=== PATIENT | male | born 1950 | race Caucasian/White ===

== ENCOUNTER 2016-07-12 15:52 | Emergency (ER) | payer SELFPAY ==
[2016-07-12 16:15] VITALS: BP 144/88
--- NOTE | 2016-07-12 16:36 | ER Document Report ---
HPI - HPI Patient complains to provider of: left ear irritation Onset: Other - 2 weeks Onset/Duration: Persistent Quality of pain: Achy Severity: Severe Pain Level: 5 Context: Patient presents emergency department with complaints of left ear irritation. Patient reports approximately 2 weeks ago he felt something buzzing around his ear and thinks thinks a bug went in his left ear. He also reports he noted blood coming down out of that ear. He reports his right ear is slightly hurting also. Denies fever vomiting diarrhea. Denies trauma to the ear. Reports he can feel something moving in his ear. Associated Symptoms: None Exacerbated by: Denies Relieved by: Denies Similar symptoms previously: No Recently seen / treated by doctor: No - DERM Skin Color: Normal Past Medical History - General Information source: Patient - Social History Smoking Status: Former Smoker - quit in 1978 Cigarette use (# per day): No Smoking Education Provided: No Frequency of alcohol use: None Drug Abuse: None Family History: Reviewed & Not Pertinent Patient has suicidal ideation: No Patient has homicidal ideation: No - Past Medical History Cardiac Medical History: Reports: Hx Hypertension - NO MEDS Denies: Hx Heart Attack Pulmonary Medical History: Reports: Hx Asthma - last attack unknown, YEARS AGO Neurological Medical History: Denies: Hx Cerebrovascular Accident Renal/ Medical History: Denies: Hx Peritoneal Dialysis GI Medical History: Denies: Hx Hepatitis, Hx Hiatal Hernia, Hx Ulcer Infectious Medical History: Denies: Hx Hepatitis Surgical Hx: Negative Past Surgical History: Denies: Hx Open Heart Surgery, Hx Pacemaker - Immunizations Hx Diphtheria, Pertussis, Tetanus Vaccination: Yes Vertical Provider Document - CONSTITUTIONAL Agree With Documented VS: Yes Exam Limitations: No Limitations General Appearance: WD/WN - INFECTION CONTROL TRAVEL OUTSIDE OF THE [place] IN LAST 30 DAYS: No - HEENT HEENT: Atraumatic, Normocephalic. negative: Tympanic Membrane Red - insect noted not moving in left ear canal - NECK Neck: Normal Inspection, Supple. negative: Lymphadenopathy-Left, Lymphadenopathy-Right - RESPIRATORY Respiratory: Breath Sounds Normal, No Respiratory Distress O2 Sat by Pulse Oximetry: 97 - CARDIOVASCULAR Cardiovascular: Regular Rate - MUSCULOSKELETAL/EXTREMETIES Musculoskeletal/Extremeties: MAEW, FROM - NEURO Level of Consciousness: Awake, Alert, Appropriate Motor/Sensory: No Motor Deficit - DERM Integumentary: Warm, Dry Course - Re-evaluation Re-evalutation: 07/12/16 16:49 Left ear irrigated no insect noted patient instructed to follow up with his primary care next week for reevaluation of his blood pressure and recheck of the ear. Patient verbalized understanding to all instructions. Patient did become dizzy during procedure. Left supine resting until he was no longer dizzy. - Vital Signs Vital signs: Temp Pulse Resp BP Pulse Ox 98.3 F 65 16 144/88 H 97 07/12/16 16:12 07/12/16 16:12 07/12/16 16:12 07/12/16 16:12 07/12/16 16:12 Discharge - Discharge Clinical Impression: Irritation of left ear, Elevated blood pressure reading Condition: Stable Disposition: HOME, SELF-CARE Additional Instructions: *You have been evaluted and treated for ear irritation *Follow-up with a primary care provider for recheck of your ear in one week and full physical *Return to ED for worsening condition, changes, needs Monitor your blood pressure. Your blood pressure was elevated today. This may be because you were anxious, in pain or because you need medication. It is important to follow up with your primary care provider for full evaluation. Forms: Elevated Blood Pressure
== END 2016-07-12 16:58 | disposition home or self-care (01) ==
LOC: ER 15:52
DX: T16.2XXA Foreign body in left ear, initial encounter (principal); X58.XXXA Exposure to other specified factors, initial encounter; I10 Essential (primary) hypertension; Z87.891 Personal history of nicotine dependence
CPT/HCPCS: 99282

== ENCOUNTER 2017-07-02 19:45 | Emergency (ER) | payer SELFPAY ==
[2017-07-02] MEDS ORDERED: SULFAMETHOXAZOLE/TRIMETHOPRIM 800-160 MG TABLET PO ONE (21:00)
--- NOTE | 2017-07-02 21:01 | ER Document Report ---
HPI - HPI Patient complains to provider of: Abscess Onset: Other - 3 weeks Onset/Duration: Worse Quality of pain: Achy Pain Level: 3 Context: Patient complains of a tender lump to the upper back area that he has had for several years but that started to gradually become more painful and swollen over the past 3 weeks. Patient denies any fever. Patient denies any history of MRSA. Associated Symptoms: denies: Fever Exacerbated by: Denies Relieved by: Denies Similar symptoms previously: No Recently seen / treated by doctor: No - ROS ROS below otherwise negative: Yes Systems Reviewed and Negative: Yes All other systems reviewed and negative - CONSTITUTIONAL Constitutional: DENIES: Fever - MUSCULOSKELETAL Musculoskeletal: REPORTS: Back Pain - DERM Notes: Tender lump upper back area Past Medical History - General Information source: Patient - Social History Smoking Status: Never Smoker Frequency of alcohol use: None Drug Abuse: None Occupation: None Lives with: Spouse/Significant other Family History: Reviewed & Not Pertinent Patient has suicidal ideation: No Patient has homicidal ideation: No - Past Medical History Cardiac Medical History: Reports: Hx Hypertension - NO MEDS Denies: Hx Heart Attack Pulmonary Medical History: Reports: Hx Asthma - last attack unknown, YEARS AGO Neurological Medical History: Denies: Hx Cerebrovascular Accident Renal/ Medical History: Denies: Hx Peritoneal Dialysis GI Medical History: Denies: Hx Hepatitis, Hx Hiatal Hernia, Hx Ulcer Infectious Medical History: Denies: Hx Hepatitis Surgical Hx: Negative Past Surgical History: Denies: Hx Open Heart Surgery, Hx Pacemaker - Immunizations Hx Diphtheria, Pertussis, Tetanus Vaccination: Yes Vertical Provider Document - CONSTITUTIONAL Agree With Documented VS: Yes Exam Limitations: No Limitations General Appearance: WD/WN, No Apparent Distress - INFECTION CONTROL TRAVEL OUTSIDE OF THE [place] IN LAST 30 DAYS: No - HEENT HEENT: Atraumatic, Normocephalic - NECK Neck: Normal Inspection - RESPIRATORY Respiratory: Breath Sounds Normal, No Respiratory Distress - CARDIOVASCULAR Cardiovascular: Regular Rate, Regular Rhythm - MUSCULOSKELETAL/EXTREMETIES Musculoskeletal/Extremeties: MAEW - NEURO Level of Consciousness: Awake, Alert, Appropriate Motor/Sensory: No Motor Deficit - DERM Integumentary: Warm, Dry, Abscess - Patient with what appears to be an infected cyst concerning for possible abscess upper back area, central area is fluctuant with surrounding erythema Course - Vital Signs Vital signs: Temp Pulse Resp BP Pulse Ox 97.6 F 98 18 151/86 H 98 07/02/17 19:57 07/02/17 19:57 07/02/17 19:57 07/02/17 19:57 07/02/17 19:57 Procedures - Incision and Drainage Back Type: Simple Anesthetic type: 1% Lidocaine Blade size: 11 I&D procedure: Betadine prep applied Incision Method: Incision made by scalpel Amount/type of drainage: Large amount of purulent drainage Adult Front & Back picture: 1 - Large abscess, diameter 5 x 6 cm Discharge - Discharge Clinical Impression: Abscess, Encounter for incision and drainage procedure Condition: Stable Disposition: HOME, SELF-CARE Instructions: Abscess ([facility]), Oral Narcotic Medication ([facility]), Post Incision and Drainage, Trimethoprim-Sulfa ([facility]) Additional Instructions: Return immediately for any new or worsening symptoms Followup with your primary care provider, call tomorrow to make a followup appointment Prescriptions: Oxycodone HCl/Acetaminophen [Percocet 5-325 mg Tablet] 1 tab PO ASDIR PRN #12 tablet PRN Reason: Sulfamethoxazole/Trimethoprim [Bactrim Ds Tablet] 1 each PO BID #20 tablet Referrals: [facility] [Provider Group] - Follow up as needed [facility] [Provider Group] - Follow up as needed
[2017-07-02 22:25] VITALS: BP 152/73
== END 2017-07-02 22:24 | disposition home or self-care (01) ==
LOC: ER 19:45
PROC: 0H96XZZ Drainage of Back Skin, External Approach (ICD-10-PCS; principal; 2017-07-02)
DX: L02.212 Cutaneous abscess of back [any part, except buttock and flank] (principal); I10 Essential (primary) hypertension; Z79.899 Other long term (current) drug therapy; J45.909 Unspecified asthma, uncomplicated
CPT/HCPCS: 99283

== ENCOUNTER 2018-09-08 03:20 | Emergency (ER) | payer MEDICARE ==
[2018-09-08] MEDS ORDERED: ACETAMINOPHEN 325 MG TABLET PO ONE (04:44)
--- NOTE | 2018-09-08 04:50 | ER Document Report ---
ED Headache - General Chief Complaint: Headache Stated Complaint: HEADACHE Time Seen by Provider: 09/08/18 04:36 Primary Care Provider: DAVID HINDS MD [ACTIVE STAFF] - Follow up in 3-5 days Notes: Patient is a 67-year-old male that comes to the emergency department for chief complaint of a headache. He states he has a throbbing pain at the back of his head that started about 2 PM, he states that he had taken a BC powder dose and this did not resolve his headache. He denies head injury, frequent headaches, fever/chills, focal numbness or weakness, visual changes, or other locations of pain. He specifically denies chest pain, abdominal pain, flank pain. He states he does not take any daily medications, he is a former smoker, former alcoholic drinker, and denies recreational drugs. He does not have a primary care provider. Patient he states he drinks too much Mountain Dew and has been trying to drink more water instead. TRAVEL OUTSIDE OF THE [place] IN LAST 30 DAYS: No - Related Data Allergies/Adverse Reactions: No Known Allergies Allergy (Unverified 07/12/16 16:12) Past Medical History - General Information source: Patient - Social History Smoking Status: Former Smoker Frequency of alcohol use: None Drug Abuse: None Lives with: Alone Family History: Reviewed & Not Pertinent Patient has suicidal ideation: No Patient has homicidal ideation: No - Past Medical History Cardiac Medical History: Denies: Hx Heart Attack Pulmonary Medical History: Reports: Hx Asthma - last attack unknown, YEARS AGO Neurological Medical History: Denies: Hx Cerebrovascular Accident Renal/ Medical History: Denies: Hx Peritoneal Dialysis GI Medical History: Denies: Hx Hepatitis, Hx Hiatal Hernia, Hx Ulcer Infectious Medical History: Denies: Hx Hepatitis Past Surgical History: Denies: Hx Open Heart Surgery, Hx Pacemaker - Immunizations Hx Diphtheria, Pertussis, Tetanus Vaccination: Yes Review of Systems - Review of Systems Constitutional: No symptoms reported EENT: No symptoms reported Cardiovascular: No symptoms reported Respiratory: No symptoms reported Gastrointestinal: No symptoms reported Genitourinary: No symptoms reported Male Genitourinary: No symptoms reported Musculoskeletal: No symptoms reported Skin: No symptoms reported Hematologic/Lymphatic: No symptoms reported Neurological/Psychological: See HPI Physical Exam - Vital signs Vitals: Temp Pulse Resp BP Pulse Ox 97.2 F 57 L 16 174/104 H 98 09/08/18 03:26 09/08/18 03:26 09/08/18 03:26 09/08/18 03:26 09/08/18 03:26 - Notes Notes: GENERAL: Alert, interacts well. No acute distress. HEAD: Normocephalic, atraumatic. EYES: Pupils equal, round, and reactive to light. Extraocular movements intact. ENT: Oral mucosa moist, tongue midline. Oropharynx unremarkable. Airway patent. NECK: Full range of motion. Supple. Trachea midline. LUNGS: Clear to auscultation bilaterally, no wheezes, rales, or rhonchi. No respiratory distress. HEART: Regular rate and rhythm. No murmur ABDOMEN: Soft, non-tender. Non-distended. Bowel sounds present in all 4 quadrants. GENITOURINARY: Deferred EXTREMITIES: Moves all 4 extremities spontaneously. No edema, normal radial and dorsalis pedis pulses bilaterally. No cyanosis. BACK: no cervical, thoracic, lumbar midline tenderness. No saddle anesthesia, normal distal neurovascular exam. Moves all extremities in full range of motion. NEUROLOGICAL: Alert and oriented x3. Normal speech. Cranial nerves II through XII grossly intact. PSYCH: Normal affect, normal mood. SKIN: Warm, dry, normal turgor. No rashes or lesions noted. Course - Re-evaluation Re-evalutation: Patient oriented, smiling, conversational, well-appearing. No neurological deficits. Patient will be treated for his headache with Tylenol, Reglan, IV fluids. Because of his hypertension and headache CAT scan was performed but shows no hemorrhage or acute intracranial findings. Blood chemistry is unremarkable. On reevaluation patient states he does feel better. He has possibly a minimal headache at this time reportedly. He remains extremely well-appearing. No nuchal rigidity or fever. No neurological deficits on reevaluation as well. I did discuss with Dr. Arellano because of his marked hypertension. Most likely patient is persistently hypertensive and he will be started on hypertension medications, he will be discharged home, he will closely follow-up with primary care, he will return if he worsens in any way. Patient states he will come back if he develops a headache, vomiting, or any other concerning or worsening symptoms. Patient states satisfaction and agreement. He states he agrees he needs a primary care and states he will follow-up with them. - Vital Signs Vital signs: Temp Pulse Resp BP Pulse Ox 97.4 F 57 L 17 173/103 H 97 09/08/18 06:54 09/08/18 03:26 09/08/18 06:53 09/08/18 06:54 09/08/18 06:53 - Laboratory Result Diagrams: 09/08/18 04:37 Laboratory results interpreted by me: 09/08/18 04:37 Glucose 113 H Discharge - Discharge Clinical Impression: Essential hypertension Headache Qualifiers: Headache type: unspecified Headache chronicity pattern: acute headache Intractability: not intractable Qualified Code(s): R51 - Headache Condition: Stable Disposition: HOME, SELF-CARE Additional Instructions: The CAT scan of your head, your evaluation, and your lab work do not show concerning findings at this time except for uncontrolled blood pressure. We have started you on hydrochlorothiazide, please take this daily, please follow- up very closely with primary care referral for additional evaluation and letha delgado. Return immediately if you worsen including returned or severe headache, vomiting, chest pain, or any other concerning or worsening symptoms. Prescriptions: Hydrochlorothiazide [Hydrodiuril 25 mg Tablet] 25 mg PO QAM #30 tablet Referrals: DAVID HINDS MD [ACTIVE STAFF] - Follow up in 3-5 days
[2018-09-08 05:18] LABS: ANION GAP 11 (5-19); BLOOD UREA NITROGEN 15 mg/dL (7-20); CALCIUM 10.2 mg/dL (8.4-10.2); CARBON DIOXIDE 26 mmol/L (22-30); CHLORIDE 103 mmol/L (98-107); GLUCOSE 113 mg/dL (75-110); POTASSIUM 3.9 mmol/L (3.6-5.0); SODIUM 140.3 mmol/L (137-145)
--- NOTE | 2018-09-08 05:44 | RADIOLOGY REPORT (SQ) ---
EXAM DESCRIPTION: CT HEAD WITHOUT IV CONTRAST COMPLETED DATE/TME: 09/08/2018 04:44 CLINICAL HISTORY: 67 years Male, headache, hypertension COMPARISON: None. TECHNIQUE: No contrast. Coronal and sagittal reformat. This exam was performed according to our departmental dose-optimization program, which includes automated exposure control, adjustment of the mA and/or kV according to patient size and/or use of iterative reconstruction technique. FINDINGS: No hemorrhage or infarct. No mass, mass effect, or midline shift. Atherosclerosis. Brain and extra-axial structures appear otherwise intact. IMPRESSION: No acute findings.
[2018-09-08] MEDS ORDERED: NORMAL SALINE 1000 ML 1,000 ML IV ONE (05:47)
[2018-09-08] MEDS ORDERED: METOCLOPRAMIDE HCL INJ/PF 10 MG/2 ML SDV IV ONE (05:47)
[2018-09-08] MEDS ORDERED: HYDROCHLOROTHIAZIDE 25 MG TABLET PO ONE (06:42)
[2018-09-08 07:06] VITALS: BP 173/103
== END 2018-09-08 07:06 | disposition home or self-care (01) ==
LOC: ER 03:20
DX: R51 Headache (principal); I10 Essential (primary) hypertension
CPT/HCPCS: 99284; 96361; 96374; 36415; 80048; 70450; A9270; J2765; J7030